=== PATIENT | female | born 1995 | race Hispanic/Latino ===

== ENCOUNTER 2016-08-07 20:17 | Emergency (ER) | payer OTHER ==
[~2016-08-07 20:17] MED LIST: AMOXIL500 MG PO; FIORICET 325 MG1 TAB PO; MOTRIN600 MG PO; REGLAN10 MG PO
--- NOTE | 2016-08-07 20:27 | ED GI/GU/ABDOMINAL COMPLAINT ---
History of Present Illness General Chief Complaint: Nausea, Vomiting, Diarrhea Stated Complaint: VOMITING X 2WEEKS Source: patient Exam Limitations: no limitations Vital Signs & Intake/Output Vital Signs & Intake/Output Vital Signs Date Time Temp Pulse Resp B/P Pulse O2 O2 Flow FiO2 Ox Delivery Rate 08/07 2249 97.8 72 18 108/75 98 Room Air 08/07 2025 95.5 71 22 110/74 98 Room Air ED Intake and Output 08/08 0000 08/07 1200 Intake Total 1000 Output Total Balance 1000 Intake, IV 1000 Patient 94 lb 15.99 oz Weight Allergies Coded Allergies: NO KNOWN ALLERGIES (01/19/16) Reconcile Medications Acetaminophen/Butalbital/Caf (Fioricet 325 MG-50 MG-40 MG) 1 TAB TAB 1-2 TAB PO Q6H PRN HEADACHE Amoxicillin (Amoxil) 500 MG CAP 1 TAB PO TID INFECTION Ibuprofen (Motrin) 600 MG TAB 1 TAB PO TID PRN PAIN/FEVER METOCLOPRAMIDE HCL (Reglan) 10 MG TAB 1 TAB PO Q6H PRN NAUSEA/HEADACHE Omeprazole Magnesium (Prilosec Otc) 20 MG TABLET.DR 1 TAB PO DAILY stomach burning Ondansetron (Zofran Odt) 4 MG TAB.RAPDIS 1 TAB SL TID PRN nausea/vomiting Triage Note: PER PT ON VACATION HERE BUT FOR 2 WEEKS ABD BURNING FEELS LIKE FOOD IS NOT BEING DIGESTED AND FEEL LIKE THROWING UP ALL THE TIME SL DIARRHEA Triage Nurses Notes Reviewed? yes ? N Is pt currently ? No Onset: Gradual Duration: week(s):, waxing and waning Timing: recent history Quality/Severity: cramping Location: epigastric Radiation: no radiation Activities at Onset: eating Prior Abdominal Problems: none Modifying Factors: Worsens With: eating, vomiting. Associated Symptoms: nausea/vomiting HPI: 20-year-old woman in prior good health presents with 2 week history of intermittent vomiting, usually after eating. She states that she was out tonight, ate some pizza, and, "came right back up." She notes mild loose stool on occasion. She notes only minimal mid epigastric discomfort. No fever chills rashes chest pain shortness of breath. She is otherwise well. Past History Travel History Traveled to [place] past 21 day No Medical History Any Pertinent Medical History? 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 No Review of Systems Review of Systems Constitutional: Reports: no symptoms. EENTM: Reports: no symptoms. Respiratory: Reports: no symptoms. Cardiovascular: Reports: no symptoms. GI: Reports: no symptoms. Genitourinary: Reports: no symptoms. Musculoskeletal: Reports: no symptoms. Skin: Reports: no symptoms. Neurological/Psychological: Reports: no symptoms. Hematologic/Endocrine: Reports: no symptoms. Immunologic/Allergic: Reports: no symptoms. All Other Systems: Reviewed and Negative Physical Exam Physical Exam General Appearance: well developed/nourished, no apparent distress, alert Head: atraumatic, normal appearance Eyes: Bilateral: normal appearance. Ears, Nose, Throat, Mouth: hearing grossly normal, moist mucous membrane Neck: normal inspection, supple, full range of motion, normal alignment Respiratory: normal breath sounds, chest non-tender, no respiratory distress, quiet respiration, lungs clear Cardiovascular: regular rate/rhythm Gastrointestinal: normal bowel sounds, soft, non-tender Back: normal inspection, normal range of motion Extremities: normal range of motion Neurologic/Psych: no motor/sensory deficits, awake, alert, oriented x 3 Skin: intact, normal color, warm/dry Core Measures ACS in differential dx? No Severe Sepsis Present: No Septic Shock Present: No Progress Differential Diagnosis: gerd, gastro vs other. Plan of Care: Orders Procedure Date/time Status LIPASE 08/07 2018 Complete HEPATIC FUNCTION PANEL 08/07 2018 Complete HUMAN BETA HCG SCREEN 08/07 2018 Complete CBC WITHOUT DIFFERENTIAL 08/07 2018 Complete BASIC METABOLIC PANEL 08/07 2018 Complete AMYLASE 08/07 2018 Complete Laboratory Tests 08/07/162037: Anion Gap 13, Estimated GFR > 60, BUN/Creatinine Ratio 16.0, Glucose 117 H, Calcium 10.0, Total Bilirubin 0.5, Direct Bilirubin 0.3, AST 23, ALT 27, Alkaline Phosphatase 82, Total Protein 7.3, Albumin 4.4, Amylase < 30 L, Lipase 100, Total Beta HCG NEGATIVE, CBC w Diff NO MAN DIFF REQ, RBC 4.65, MCV 82.1, MCH 27.7, RDW 12.1, MPV 8.7, Gran % 64.2, Lymphocytes % 26.8, Monocytes % 8.2, Eosinophils % 0.4, Basophils % 0.4, Absolute Granulocytes 4.2, Absolute Lymphocytes 1.8, Absolute Monocytes 0.5, Absolute Eosinophils 0, Absolute Basophils 0, PUBS MCHC 33.8 Initial ED EKG: none Departure Departure Disposition: HOME OR SELF CARE Condition: Stable Clinical Impression Primary Impression: Vomiting Referrals: ÁLVARO ROD MD (PCP/Family) Departure Forms: Customer Survey General Discharge Information Prescriptions: Current Visit Scripts Ondansetron (Zofran Odt) 1 TAB SL TID PRN nausea/vomiting #10 TAB Ref 1 Omeprazole Magnesium (Prilosec Otc) 1 TAB PO DAILY #30 TAB Comments pt well appearing in ED. Labs benign. No vomiting in ED. Pt tolerated PO. No abdominal tenderness at discharge. Pt safe for follow up with PMD.
[2016-08-07 21:03] LABS: ABSOLUTE BASOPHIL COUNT 0 /CUMM (0.0-0.2); ABSOLUTE EOSINOPHIL COUNT 0 /CUMM (0.0-0.7); ABSOLUTE GRANULOCYTE CT 4.2 /CUMM (1.4-6.5); ABSOLUTE LYMPH COUNT 1.8 /CUMM (1.2-3.4); ABSOLUTE MONOCYTE COUNT 0.5 /CUMM (0.10-0.60); BASOPHIL % 0.4 % (0.0-2.0); EOSINOPHIL % 0.4 % (0-5); GRANULOCYTE % 64.2 % (42.2-75.2); HEMATOCRIT 38.2 % (37-47); MEAN CORPUSCULAR HGB 27.7 PG (27.0-31.0); MEAN CORPUSCULAR HGB CONC 33.8 G/DL (33.0-37.0); MEAN CORPUSCULAR VOLUME 82.1 FL (81.0-99.0); MEAN PLATELET VOLUME 8.7 FL (7.4-10.4); PLATELET COUNT 214 /CUMM (130-400); RBC DISTRIBUTION WIDTH 12.1 % (11.5-14.5); RED BLOOD CELL CT 4.65 /CUMM (4.20-5.40); WHITE BLOOD CELL COUNT 6.6 /CUMM (4.8-10.8)
[2016-08-07] MEDS ORDERED: PRILOSEC OTC20 M1 PO (22:05)
[2016-08-07] MEDS ORDERED: ZOFRAN ODT4 M1 SL (22:05)
[2016-08-07 22:49] VITALS: BP 108/75
== END 2016-08-07 22:51 ==
LOC: ERH 20:17
PROVIDERS: Pediatrics
DX: R11.10 Vomiting, unspecified (principal)
CPT/HCPCS: 96374; 96375; J2405